=== PATIENT | male | born 1990 | race Caucasian/White ===

== ENCOUNTER 2020-02-20 12:21 | Emergency (ER) | payer OTHER, MEDICAID ==
[~2020-02-20] VITALS: Ht 170.2 cm; Wt 122.5 kg
[2020-02-20 12:21] VITALS: BP_SYST 115
[2020-02-20 14:14] VITALS: BP_SYST 127
[2020-02-20] MEDS ORDERED: IBUPROFEN 600 MG TABLET PO ONE (14:30)
== END 2020-02-20 14:14 | disposition home or self-care (01) ==
LOC: SED 12:21
DX: S62.346A Nondisplaced fracture of base of fifth metacarpal bone, right hand, initial encounter for closed fracture (principal); W22.8XXA Striking against or struck by other objects, initial encounter; Y93.89 Activity, other specified; Y92.89 Other specified places as the place of occurrence of the external cause; Y99.8 Other external cause status
CPT/HCPCS: 99283